=== PATIENT | female | born 1980 | race Caucasian/White ===

== ENCOUNTER 2020-11-26 17:27 | Emergency (ER) | payer OTHER ==
[~2020-11-26] VITALS: Ht 165.1 cm; Wt 102.1 kg
[2020-11-26] MEDS ORDERED: AMLODIPINE BESY10 MG PO (18:26)
[2020-11-26] MEDS ORDERED: VENLAFAXINE150 MG PO (18:26)
[2020-11-26 18:28] LABS: BILIRUBIN Negative (Negative); BLOOD 2+ (Negative); CLARITY Turbid (Clear); COLOR Yellow (Yellow); GLUCOSE Negative (Negative); KETONE 2+ (Negative); LEUKO ESTERASE 3+ (Negative); NITRITE Positive (Negative); PH 6.5 (4.5-8.0); SPECIFIC GRAVITY 1.015 (1.001-1.030); UROBILINOGEN 0.2 E.U./dl (0.0-1.0)
[2020-11-26] MEDS ORDERED: PEPCID20 MG PO (18:29)
[2020-11-26] MEDS ORDERED: BUSPIRONE HCL10 MG PO (18:29)
[2020-11-26] MEDS ORDERED: ATARAX,VISTARIL50 MG PO (18:29)
[2020-11-26 18:33] LABS: WBC TNTC wbc/hpf (0-5)
[2020-11-26 18:34] LABS: BACTERIA 2+
[2020-11-26 19:00] LABS: BASO % 0.3 % (0.0-1.0); EOS # 0.1 10*3/uL (0.0-0.4); EOS % 1.1 % (1.0-4.0); HEMATOCRIT 35.1 % (37.0-47.0); MEAN CELL VOLUME 86.9 fl (81.0-99.0); MEAN CORPUSCULAR HGB 28.2 pg (27.0-31.0); MEAN CORPUSCULAR HGB CONC 32.5 g/dl (33.0-37.0); MEAN PLATELET VOLUME 9.4 fl (9.6-12.3); NEUT # 7.1 10*3/uL (2.3-7.9); PLATELET COUNT AUTOMATED 302 10*3/uL (130-400); RED BLOOD COUNT 4.04 10*6/uL (4.10-5.10); RED CELL DISTRI WIDTH 13.1 % (0-14.5); WHITE BLOOD COUNT 9.3 10*3/uL (4.8-10.8)
[2020-11-26 19:16] LABS: ALBUMIN 3.2 gm/dl (3.1-4.5); ALKALINE PHOSPHATASE 106 U/L (45-117); BUN 9 mg/dl (7-24); CHLORIDE 107 mmol/L (98-107); CREATININE 0.82 mg/dL (0.55-1.02); LIPASE 80 U/L (73-393); POTASSIUM 2.9 mmol/L (3.5-5.1); SGOT/AST 15 IU/L (3-35); SGPT/ALT 29 U/L (12-78); SODIUM 139 mmol/L (136-145); TOTAL PROTEIN 7.5 gm/dL (6.4-8.2)
== END 2020-11-26 23:30 | disposition short-term general hospital (02) ==
LOC: ED 17:27
PROVIDERS: Emergency Medicine; Physician Assistant
DX: N39.0 Urinary tract infection, site not specified (principal); N13.2 Hydronephrosis with renal and ureteral calculous obstruction; E87.6 Hypokalemia; Z79.899 Other long term (current) drug therapy

== ENCOUNTER → 2020-12-23 | Outpatient (CLI) | payer OTHER ==
[~2020-12-23] MED LIST: AMLODIPINE BESY10 MG PO; ATARAX,VISTARIL50 MG PO; BUSPIRONE HCL10 MG PO; PEPCID20 MG PO; VENLAFAXINE150 MG PO
== END | disposition home or self-care (01) ==
LOC: RAD 13:20
PROVIDERS: ATTEND Urology
DX: N20.0 Calculus of kidney (principal); Z90.49 Acquired absence of other specified parts of digestive tract; Z96.0 Presence of urogenital implants

== ENCOUNTER 2021-05-23 18:24 | Emergency (ER) | payer OTHER ==
[~2021-05-23] VITALS: Ht 165.1 cm; Wt 90.7 kg
[2021-05-23 19:47] LABS: BILIRUBIN Negative (Negative); BLOOD 3+ (Negative); CLARITY Turbid (Clear); COLOR Yellow (Yellow); GLUCOSE Negative (Negative); KETONE Negative (Negative); LEUKO ESTERASE 3+ (Negative); NITRITE Positive (Negative); PH 6.5 (4.5-8.0)
[2021-05-23 19:59] LABS: BACTERIA 2+; RBC TNTC rbc/hpf (0-2); WBC TNTC wbc/hpf (0-5)
[2021-05-23] MEDS ORDERED: CIPRO500 MG PO (20:12)
[2021-05-23] MEDS ORDERED: PYRIDIUM200 M1 PO (20:12)
[2021-05-23] MEDS ORDERED: PROVENTIL HFA6.7 GM INH (20:32)
== END 2021-05-23 20:34 | disposition home or self-care (01) ==
LOC: ED 18:24
PROVIDERS: Physician Assistant
DX: J40 Bronchitis, not specified as acute or chronic (principal); Z20.822 Contact with and (suspected) exposure to COVID-19; N39.0 Urinary tract infection, site not specified; Z79.899 Other long term (current) drug therapy

== ENCOUNTER 2021-05-31 15:09 | Inpatient (IN) | payer OTHER ==
[~2021-05-31] VITALS: Ht 165.1 cm; Wt 88.5 kg
[~2021-05-31 15:09] MED LIST changes: +CIPRO500 MG PO; +PROVENTIL HFA6.7 GM INH; +PYRIDIUM200 M1 PO
[2021-05-31 15:44] VITALS: BP 129/82
[2021-05-31 17:25] LABS: BASO % 0.3 % (0.0-1.0); EOS % 0.3 % (1.0-4.0); HEMATOCRIT 30.5 % (37.0-47.0); LYMPH # 0.7 10*3/uL (1.3-4.4); LYMPH % 22.9 % (27.0-41.0); MEAN CELL VOLUME 70.9 fl (81.0-99.0); MEAN CORPUSCULAR HGB 21.6 pg (27.0-31.0); MEAN CORPUSCULAR HGB CONC 30.5 g/dl (33.0-37.0); MEAN PLATELET VOLUME 10.1 fl (9.6-12.3); MONO # 0.2 10*3/uL (0.1-1.0); MONO % 5.1 % (3.0-9.0); NEUT # 2.1 10*3/uL (2.3-7.9); NEUT % 71.1 % (47.0-73.0); PLATELET COUNT AUTOMATED 292 10*3/uL (130-400); RED CELL DISTRI WIDTH 16.2 % (0-14.5); WHITE BLOOD COUNT 2.9 10*3/uL (4.8-10.8)
[2021-05-31 17:43] LABS: ALBUMIN 2.5 gm/dl (3.1-4.5); ALKALINE PHOSPHATASE 106 U/L (45-117); BUN 11 mg/dl (7-24); CHLORIDE 109 mmol/L (98-107); CREATININE 1.02 mg/dL (0.55-1.02); SGOT/AST 28 IU/L (3-35); SGPT/ALT 25 U/L (12-78); SODIUM 141 mmol/L (136-145); TOTAL PROTEIN 7.1 gm/dL (6.4-8.2)
[2021-05-31 17:45] LABS: TROPONIN I < 0.015 ng/ml (<0.045)
[2021-05-31 17:53] LABS: BILIRUBIN 1+ (Negative); BLOOD 3+ (Negative); CLARITY Turbid (Clear); COLOR Dark Yellow (Yellow); GLUCOSE Negative (Negative); KETONE Negative (Negative); LEUKO ESTERASE 3+ (Negative); NITRITE Negative (Negative); PH 6.5 (4.5-8.0)
[2021-05-31 18:05] LABS: RBC TNTC rbc/hpf (0-2)
[2021-05-31] MEDS ORDERED: MINIPRESS1 MG PO (19:59)
[2021-05-31] MEDS ORDERED: TRILEPTAL150 MG PO (20:00)
[2021-05-31 20:38] VITALS: BP 114/66
[2021-05-31] MEDS ORDERED: OXCARBAZEPINE300 M1 PO (22:11)
[2021-06-01] VITALS: BP 117/64
[2021-06-01 06:13] LABS: BUN 8 mg/dl (7-24); CHLORIDE 112 mmol/L (98-107); CHOLESTEROL 89 mg/dL (<200); CREATININE 0.82 mg/dL (0.55-1.02); IRON 17 ug/dL (50-170); POTASSIUM 3.7 mmol/L (3.5-5.1); SODIUM 142 mmol/L (136-145); TOTAL IRON BINDING CAPACITY 263 ug/dl (250-450)
[2021-06-01 06:14] LABS: BASO % 0.3 % (0.0-1.0); EOS % 0.3 % (1.0-4.0); HEMATOCRIT 28.1 % (37.0-47.0); LYMPH # 0.9 10*3/uL (1.3-4.4); LYMPH % 30.5 % (27.0-41.0); MEAN CELL VOLUME 70.3 fl (81.0-99.0); MEAN CORPUSCULAR HGB 21.3 pg (27.0-31.0); MEAN CORPUSCULAR HGB CONC 30.2 g/dl (33.0-37.0); MEAN PLATELET VOLUME 9.9 fl (9.6-12.3); MONO # 0.2 10*3/uL (0.1-1.0); MONO % 5.1 % (3.0-9.0); NEUT # 1.9 10*3/uL (2.3-7.9); NEUT % 63.5 % (47.0-73.0); PLATELET COUNT AUTOMATED 261 10*3/uL (130-400)
[2021-06-01 06:24] LABS: FREE T4 0.91 ng/dl (0.76-1.46); LDL CHOLESTEROL 28 mg/dL (9-159); THYROID STIM HORMONE (HS) 0.531 uIU/ml (0.358-4.75); TRIGLYCERIDES 80 mg/dl (<150)
[2021-06-01 09:00] VITALS: BP 111/58
[2021-06-01 11:30] VITALS: BP 107/61
[2021-06-01 12:00] VITALS: BP 100/52
[2021-06-01 16:00] VITALS: BP 100/61
[2021-06-01 20:00] VITALS: BP 144/88
[2021-06-02] VITALS: BP 113/81
[2021-06-02 06:30] LABS: BUN 9 mg/dl (7-24); CHLORIDE 114 mmol/L (98-107); CREATININE 0.72 mg/dL (0.55-1.02); POTASSIUM 3.8 mmol/L (3.5-5.1); SODIUM 142 mmol/L (136-145)
[2021-06-02 08:00] VITALS: BP 109/63
[2021-06-02 08:17] LABS: BASO % 0.3 % (0.0-1.0); EOS % 0.7 % (1.0-4.0); LYMPH % 34.1 % (27.0-41.0); MEAN CELL VOLUME 70.7 fl (81.0-99.0); MEAN CORPUSCULAR HGB 21.5 pg (27.0-31.0); MEAN CORPUSCULAR HGB CONC 30.4 g/dl (33.0-37.0); MEAN PLATELET VOLUME 9.6 fl (9.6-12.3); MONO # 0.2 10*3/uL (0.1-1.0); MONO % 5.4 % (3.0-9.0); NEUT # 1.8 10*3/uL (2.3-7.9); NEUT % 59.2 % (47.0-73.0); PLATELET COUNT AUTOMATED 222 10*3/uL (130-400); RED BLOOD COUNT 3.96 10*6/uL (4.10-5.10); RED CELL DISTRI WIDTH 16.3 % (0-14.5)
[2021-06-02] MEDS ORDERED: ZITHROMAX500 MG PO (12:15)
[2021-06-02] MEDS ORDERED: MUCUS RELIEF600 MG PO (12:15)
== END 2021-06-02 13:22 | disposition home or self-care (01) | DRG 137 ==
LOC: ED 15:09 → EDHOLD 19:37 → 4E 19:37
PROVIDERS: Internal Medicine; Physician Assistant; Student in an Organized Health Care Education/Training Program; ADMIT Student in an Organized Health Care Education/Training Program; ATTEND Student in an Organized Health Care Education/Training Program
DX: U07.1 COVID-19 (principal); N39.0 Urinary tract infection, site not specified; E43 Unspecified severe protein-calorie malnutrition; J12.82 Pneumonia due to coronavirus disease 2019; E87.6 Hypokalemia; D50.9 Iron deficiency anemia, unspecified; R73.9 Hyperglycemia, unspecified; F41.9 Anxiety disorder, unspecified; F32.A Depression, unspecified; J15.9 Unspecified bacterial pneumonia; Z90.49 Acquired absence of other specified parts of digestive tract; Z79.51 Long term (current) use of inhaled steroids; Z79.899 Other long term (current) drug therapy; Z68.32 Body mass index [BMI] 32.0-32.9, adult

== ENCOUNTER 2021-06-24 13:38 | Emergency (ER) | payer OTHER ==
[~2021-06-24 13:38] MED LIST changes: +MINIPRESS1 MG PO; +MUCUS RELIEF600 MG PO; +OXCARBAZEPINE300 M1 PO; +TRILEPTAL150 MG PO; +ZITHROMAX500 MG PO
[2021-06-24 14:01] LABS: BASO # 0.1 10*3/uL (0.0-0.1); BASO % 0.8 % (0.0-1.0); EOS # 0.3 10*3/uL (0.0-0.4); EOS % 4.4 % (1.0-4.0); HEMATOCRIT 29.2 % (37.0-47.0); LYMPH % 34.6 % (27.0-41.0); MEAN CELL VOLUME 71.4 fl (81.0-99.0); MEAN CORPUSCULAR HGB 21.8 pg (27.0-31.0); MEAN CORPUSCULAR HGB CONC 30.5 g/dl (33.0-37.0); MEAN PLATELET VOLUME 9.4 fl (9.6-12.3); MONO # 0.5 10*3/uL (0.1-1.0); MONO % 7.6 % (3.0-9.0); NEUT # 3.1 10*3/uL (2.3-7.9); NEUT % 52.4 % (47.0-73.0); PLATELET COUNT AUTOMATED 386 10*3/uL (130-400); RED BLOOD COUNT 4.09 10*6/uL (4.10-5.10); RED CELL DISTRI WIDTH 18.4 % (0-14.5); WHITE BLOOD COUNT 5.9 10*3/uL (4.8-10.8)
[2021-06-24 14:15] LABS: ALKALINE PHOSPHATASE 89 U/L (45-117); BUN 12 mg/dl (7-24); CHLORIDE 110 mmol/L (98-107); CREATININE 1.17 mg/dL (0.55-1.02); POTASSIUM 3.6 mmol/L (3.5-5.1); SGOT/AST 12 IU/L (3-35); SGPT/ALT 17 U/L (12-78); SODIUM 139 mmol/L (136-145); TOTAL PROTEIN 7.5 gm/dL (6.4-8.2)
[2021-06-24 14:32] LABS: BILIRUBIN Negative (Negative); BLOOD 3+ (Negative); CLARITY Turbid (Clear); COLOR Dark Yellow (Yellow); GLUCOSE Negative (Negative); KETONE Negative (Negative); LEUKO ESTERASE 2+ (Negative); NITRITE Negative (Negative); PH 7.5 (4.5-8.0); SPECIFIC GRAVITY 1.025 (1.001-1.030); UROBILINOGEN 0.2 E.U./dl (0.0-1.0)
[2021-06-24 14:58] LABS: MUCOUS 1+; RBC TNTC rbc/hpf (0-2); WBC TNTC wbc/hpf (0-5)
[2021-06-24 14:59] LABS: BACTERIA 1+
== END 2021-06-24 15:40 | disposition home or self-care (01) ==
LOC: ED 13:38
PROVIDERS: Student in an Organized Health Care Education/Training Program
DX: E86.0 Dehydration (principal); N17.9 Acute kidney failure, unspecified; Z79.899 Other long term (current) drug therapy

== ENCOUNTER → 2022-03-23 | Outpatient (CLI) | payer OTHER ==
[2022-03-23 14:39] LABS: BASO % 0.7 % (0.0-1.0); EOS # 0.1 10*3/uL (0.0-0.4); EOS % 1.7 % (1.0-4.0); LYMPH # 1.4 10*3/uL (1.3-4.4); LYMPH % 23.7 % (27.0-41.0); MEAN CELL VOLUME 72.8 fl (81.0-99.0); MEAN CORPUSCULAR HGB 20.1 pg (27.0-31.0); MEAN CORPUSCULAR HGB CONC 27.7 g/dl (33.0-37.0); MEAN PLATELET VOLUME 9.4 fl (9.6-12.3); MONO # 0.5 10*3/uL (0.1-1.0); MONO % 7.5 % (3.0-9.0); NEUT % 66.2 % (47.0-73.0); PLATELET COUNT AUTOMATED 518 10*3/uL (130-400); RED BLOOD COUNT 4.12 10*6/uL (4.10-5.10); RED CELL DISTRI WIDTH 18.4 % (0-14.5)
[2022-03-23 14:59] LABS: ALKALINE PHOSPHATASE 93 U/L (45-117); BUN 10 mg/dl (7-24); CHLORIDE 109 mmol/L (98-107); CREATININE 1.15 mg/dL (0.55-1.02); POTASSIUM 4.1 mmol/L (3.5-5.1); SGOT/AST 13 IU/L (3-35); SGPT/ALT 17 U/L (12-78); SODIUM 141 mmol/L (136-145); TOTAL PROTEIN 7.7 gm/dL (6.4-8.2)
== END ==
LOC: LAB 14:19
PROVIDERS: ATTEND Physical Therapist
DX: Z12.4 Encounter for screening for malignant neoplasm of cervix (principal); R79.89 Other specified abnormal findings of blood chemistry; D50.9 Iron deficiency anemia, unspecified; E87.6 Hypokalemia; Z98.84 Bariatric surgery status

== ENCOUNTER 2022-12-13 21:59 | Emergency (ER) | payer OTHER ==
[~2022-12-13] VITALS: Ht 165.1 cm; Wt 90.7 kg
[2022-12-13] MEDS ORDERED: TRAZODONE50 MG PO (22:18)
[2022-12-13 22:38] LABS: BILIRUBIN Negative (Negative); BLOOD 2+ (Negative); CLARITY Cloudy (Clear); COLOR Yellow (Yellow); GLUCOSE Negative (Negative); KETONE Negative (Negative); LEUKO ESTERASE Trace (Negative); NITRITE Negative (Negative); PH 5.5 (4.5-8.0); UROBILINOGEN 0.2 E.U./dl (0.0-1.0)
[2022-12-13 22:53] LABS: EPITHELIAL CELLS 16-20
[2022-12-13 22:54] LABS: RBC 21-30 rbc/hpf (0-2)
[2022-12-13 23:27] LABS: BASO % 0.4 % (0.0-1.0); EOS # 0.1 10*3/uL (0.0-0.4); EOS % 2.2 % (1.0-4.0); HEMATOCRIT 44.9 % (37.0-47.0); LYMPH # 0.9 10*3/uL (1.3-4.4); LYMPH % 18.7 % (27.0-41.0); MEAN CELL VOLUME 89.4 fl (81.0-99.0); MEAN CORPUSCULAR HGB 29.5 pg (27.0-31.0); MEAN PLATELET VOLUME 9.2 fl (9.6-12.3); MONO # 0.5 10*3/uL (0.1-1.0); MONO % 9.8 % (3.0-9.0); NEUT # 3.2 10*3/uL (2.3-7.9); NEUT % 68.7 % (47.0-73.0); PLATELET COUNT AUTOMATED 281 10*3/uL (130-400); RED BLOOD COUNT 5.02 10*6/uL (4.10-5.10); WHITE BLOOD COUNT 4.6 10*3/uL (4.8-10.8)
[2022-12-13 23:45] LABS: ALKALINE PHOSPHATASE 88 U/L (46-116); BUN 11 mg/dl (9-23); CHLORIDE 108 mmol/L (98-107); POTASSIUM 3.9 mmol/L (3.4-5.1); SGPT/ALT 8 U/L (10-49); TOTAL PROTEIN 7.3 gm/dL (6.0-8.0)
[2022-12-14] MEDS ORDERED: PERCOCET 5-3251 EACH PO (02:01)
== END 2022-12-14 02:55 | disposition home or self-care (01) ==
LOC: ED 21:59
PROVIDERS: Emergency Medicine
DX: N13.30 Unspecified hydronephrosis (principal); R11.0 Nausea; Z86.16 Personal history of COVID-19; E87.6 Hypokalemia; F32.A Depression, unspecified; F41.9 Anxiety disorder, unspecified; Z87.442 Personal history of urinary calculi; Z90.49 Acquired absence of other specified parts of digestive tract; Z98.890 Other specified postprocedural states